=== PATIENT | male | born 1955 | race Hispanic/Latino ===

== ENCOUNTER 2017-07-12 21:04 | Emergency (ER) | payer BC ==
[~2017-07-12] VITALS: Ht 167.6 cm; Wt 81.7 kg
[~2017-07-12 21:04] MED LIST: ATIVAN0.5 MG PO; CITALOPRAM HBR20 MG PO; OMEPRAZOLE20 MG PO
== END 2017-07-12 22:28 | disposition home or self-care (01) ==
LOC: ED 21:04
DX: R42 Dizziness and giddiness (principal); T43.225A Adverse effect of selective serotonin reuptake inhibitors, initial encounter; F32.9 Major depressive disorder, single episode, unspecified; E78.5 Hyperlipidemia, unspecified; Z79.899 Other long term (current) drug therapy
CPT/HCPCS: 99282

== ENCOUNTER 2021-03-08 18:19 | Emergency (ER) | payer OTHER ==
[~2021-03-08] VITALS: Ht 167.6 cm; Wt 78.0 kg
[2021-03-08] MEDS ORDERED: ZINC50 MG PO (19:05)
[2021-03-08] MEDS ORDERED: VITAMIN D325 MCG PO (19:06)
[2021-03-08] MEDS ORDERED: MAGNESIUM100 MG PO (19:06)
[2021-03-08] MEDS ORDERED: SIMVASTATIN40 MG PO (19:07)
== END 2021-03-08 20:19 | disposition home or self-care (01) ==
LOC: ED 18:19
DX: R23.2 Flushing (principal); K21.9 Gastro-esophageal reflux disease without esophagitis; E78.5 Hyperlipidemia, unspecified; Z79.899 Other long term (current) drug therapy
CPT/HCPCS: 99284